=== PATIENT | male | born 1960 | race Caucasian/White ===

== ENCOUNTER 2022-04-30 12:04 | Emergency (ER) | payer MEDICAID, OTHER ==
[~2022-04-30] VITALS: Ht 180.3 cm; Wt 109.0 kg
[~2022-04-30 12:04] MED LIST: QUET200T
[2022-04-30] MEDS ORDERED: ACETAMINOPHEN 325MG TABLET PO ONE (14:30)
[2022-04-30] MEDS ORDERED: IBUPROFEN 400MG TABLET PO ONE (14:30)
[2022-04-30] MEDS ORDERED: KETOROLAC 30MG/ML VIAL IM ONE (15:30)
[2022-04-30 16:06] VITALS: BP 166/110
[2022-04-30] MEDS ORDERED: ACET-2708 MT (16:13)
[2022-04-30] MEDS ORDERED: IBUP-2028 MT (16:13)
[2022-04-30] MEDS ORDERED: GUAI-453 MT (16:13)
== END 2022-04-30 17:05 | disposition home or self-care (01) ==
LOC: ER 12:04
DX: J06.9 Acute upper respiratory infection, unspecified (principal); I10 Essential (primary) hypertension; R73.03 Prediabetes; J45.909 Unspecified asthma, uncomplicated; G43.909 Migraine, unspecified, not intractable, without status migrainosus; Z20.822 Contact with and (suspected) exposure to COVID-19
CPT/HCPCS: 71045; 87426; 87804; 96372; 99284; C9803; J1885